=== PATIENT | female | born 1950 | race African-American/Black ===

== ENCOUNTER 2017-08-18 20:01 | Emergency (ER) | payer OTHER ==
[2017-08-18 20:27] VITALS: BP 151/98; PULSE 79; TEMP 98.5; BMI 32.1
[2017-08-18] MEDS ORDERED: TETANUS AND DIPHTHERIA TOXOID 0.5 ML DISP.SYRIN IM ONE (20:45)
[2017-08-18] MEDS ORDERED: BACITRACIN 15 GM TUBE TOPICAL OINTMENT ONE (20:45)
[2017-08-18] MEDS ORDERED: BACITRACIN 15 GM TUBE TOPICAL OINTMENT TP ONE (20:45)
--- NOTE | 2017-08-18 20:53 | PDOC ---
History of Present Illness - General Chief Complaint: Abrasion Stated Complaint: LACERATION Time Seen by Provider: 08/18/17 20:38 History Source: Patient - History of Present Illness Initial Comments: 08/18/17 20:46 67 year old female is a [employer] employee c/o scratches to right hand by child from the [facility]. pmhx. hypertension Past History - Past Medical History Allergies/Adverse Reactions: Allergies Allergy/AdvReac Type Severity Reaction Status Date / Time No Known Allergies Allergy Verified 12/28/14 22:11 Home Medications: Ambulatory Orders Olmesartan/Amlodipin/Hcthiazid [Tribenzor 40-10-25 mg Tablet] 1 each PO DAILY Rosuvastatin Calcium [Crestor] 10 mg PO HS 12/28/14 HTN: Yes Hypercholesterolemia: Yes - Immunization History Immunization Up to Date: Yes (FLU) - Suicide/Smoking/Psychosocial Hx Smoking Status: No Smoking History: Current every day smoker Have you smoked in the past 12 months: Yes Number of Cigarettes Smoked Daily: 8 Information on smoking cessation initiated: No Hx Alcohol Use: No Drug/Substance Use Hx: No Substance Use Type: None Review of Systems - Review of Systems Able to Perform ROS?: Yes Is the patient limited Congolese proficient: No Constitutional: No: Symptoms Reported, See HPI, Chills, Diaphoresis, Fever, Loss of Appetite, Malaise, Night Sweats, Weakness, Weight Stable, Unintentional Wgt. Loss, Unexplained wgt Loss, Other Respiratory: No: Symptoms reported, See HPI, Cough, Orthopnea, Shortness of Breath, SOB with Exertion, SOB at Rest, Stridor, Wheezing, Productive cough, Hemoptysis, Other ABD/GI: No: Symptoms Reported, See HPI, Abdominal Distended, Abd. Pain w/ defecation, Blood Streaked Bowels, Constipated, Diarrhea, Difficulty Swallowing , Nausea, Poor Appetite, Poor Fluid Intake, Rectal Bleeding, Vomiting, Indigestion, Abdominal cramping, Tarry Stools, Other Integumentary: Yes: Other (scratches duncan) *Physical Exam - Vital Signs Last Vital Signs Temp Pulse Resp BP Pulse Ox 98.5 F 79 18 151/98 97 08/18/17 20:24 08/18/17 20:24 08/18/17 20:24 08/18/17 20:24 08/18/17 20:24 - Physical Exam General Appearance: Yes: Appropriately Dressed Extremity: positive: Other (right hand with multiple scratch duncan. clean dry and intact) Progress Note - Progress Note Progress Note: and scratch duncan P: wound cleaned with saline a betadine. bacitracin applied TD IM given/ *DC/Admit/Observation/Transfer Diagnosis at time of Disposition: Scratch of hand Qualifiers: Encounter type: initial encounter Laterality: right Qualified Code(s): S60.511A - Abrasion of right hand, initial encounter; S60.511A - Abrasion of right hand, initial encounter - Discharge Dispostion Disposition: HOME - Patient Instructions Printed Discharge Instructions: DI for Abrasion Additional Instructions: Apply bacitracin to the area. follow up with your doctor for a wound check in 2 days.
== END 2017-08-18 21:06 | disposition home or self-care (01) ==
LOC: JERFT 20:01
PROC: 3E0234Z Introduction of Serum, Toxoid and Vaccine into Muscle, Percutaneous Approach (ICD-10-PCS; principal; 2017-08-18)
DX: S60.511A Abrasion of right hand, initial encounter (principal); W50.0XXA Accidental hit or strike by another person, initial encounter; Y93.F9 Activity, other caregiving; Y92.118 Other place in children's home and orphanage as the place of occurrence of the external cause; Y99.0 Civilian activity done for income or pay; I10 Essential (primary) hypertension; E78.00 Pure hypercholesterolemia, unspecified; F17.210 Nicotine dependence, cigarettes, uncomplicated
CPT/HCPCS: 99281-25

== ENCOUNTER 2017-11-27 08:36 | Day surgery (SDC) | payer OTHER ==
[2017-11-26 15:39] VITALS: BMI 31.7
--- NOTE | 2017-11-27 08:19 | HP ---
Satellite [facility] - Chief Complaint Chief Complaint: right ring trigger finger - Past Medical History Allergies/Adverse Reactions: Allergies Allergy/AdvReac Type Severity Reaction Status Date / Time No Known Allergies Allergy Verified 11/26/17 15:30 - Current Medications Current Medications: Home Medications Medication Instructions Recorded Olmesartan/Amlodipin/Hcthiazid 1 each PO DAILY 12/28/14 [Tribenzor 40-10-25 mg Tablet] Atorvastatin Ca [Lipitor] 10 mg PO HS 08/18/17 Aspirin [ASA -] 81 mg PO DAILY 11/26/17 Hydrocodone/Acetaminophen [[place] 1 each PO Q6H PRN #20 tablet MDD 4 11/27/17 5-325 Tablet] Satellite Physical Exam - Physical Examination General Appearance: Well Nourished, Well Developed, Alert & Oriented x3 ENT: Clear Lung: Normal air movement Heart: Regular rate & rhythm Extremities: Other (right ring finger- + ttp, + locking a1 alize, nvi) Neurological: Intact, Alert, Oriented Satellite Impression/Plan - Impression/Plan Impression: right ring trigger finger Operative Procedure: right ring trigger release Date to be Performed: 11/27/17
[2017-11-27] MEDS ORDERED: ceFAZolin SODIUM 1 GM VIAL ONE (09:34)
[2017-11-27] MEDS ORDERED: MIDAZOLAM HCL 2 MG/2 ML SINGLE DOSE VIAL ONE (09:35)
[2017-11-27] MEDS ORDERED: PROPOFOL 20 ML ONE (09:35)
[2017-11-27] MEDS ORDERED: KETOROLAC TROMETHAMINE 30 MG/1 ML VIAL ONE (09:50)
[2017-11-27] MEDS ORDERED: ceFAZolin SODIUM 1 GM VIAL IVPB ONE (10:00)
[2017-11-27] MEDS ORDERED: BUPIVACAINE HCL/PF 0.5% (5MG/ML) 10 ML VIAL IJ ONE (10:09)
[2017-11-27] MEDS ORDERED: LIDOCAINE HCL 1%, 10 MG/ML (20ML VIAL) INF ONE (10:09)
--- NOTE | 2017-11-27 10:44 | OP ---
Operative Note - Note: Operative Date: 11/27/17 Pre-Operative Diagnosis: right ring finger mass, ring trigger finger Operation: right ring finger mass excision, trigger finger release (seperate incision), tendon sheath excision Post-Operative Diagnosis: Same as Pre-op Surgeon: Frederick Parra Anesthesiologist/RADIATOR REPAIRER: Christy Ramirez Anesthesia: Local, MAC Specimens Removed: 1. mass right ring finger 2. ring finger A1 tendon sheath Estimated Blood Loss (mls): 0 Drains, Volume Out (mls): 0 Blood Volume Replaced (mls): 0 Fluid Volume Replaced (mls): 500 Operative Report Dictated: Yes
[2017-11-27] MEDS ORDERED: ONDANSETRON 4 MG/2 ML VIAL IVPUSH PRN (10:46)
[2017-11-27] MEDS ORDERED: oxyCODONE HCL 5 MG TABLET PO PRN (10:46)
[2017-11-27] MEDS ORDERED: ACETAMINOPHEN 325 MG TABLET (FP) PO PRN (10:46)
[2017-11-27] MEDS ORDERED: LACTATED RINGERS SOLUTION 1,000 ML IV SCH (11:00)
[2017-11-27 11:52] VITALS: TEMP 97.9
--- NOTE | 2017-11-27 13:18 | SPEC ---
DATE OF OPERATION: 11/27/2017 PREOPERATIVE DIAGNOSES: 1. Mass right ring finger. 2. Ring finger trigger finger. POSTOPERATIVE DIAGNOSES: 1. Mass right ring finger. 2. Ring finger trigger finger. PROCEDURES: 1. Right ring finger mass excision. 2. Right ring finger trigger finger release. 3. Ring finger tendon sheath excision. SURGEON: Delia Daly MD CHAMBER MAGISTRATE: None. ANESTHESIA: JACQUIE Fox anesthesia. Local injection of 10 mL 0.5% Marcaine 1% lidocaine mix. DRAINS: None. COMPLICATIONS: None. SPECIMEN: 1. Mass right ring finger. 2. Tendon sheath right ring finger/hand. INDICATIONS: This patient is a 67-year-old female with a preoperative diagnosis of recurrent, severe right ring finger trigger finger as well as a mass in a different location along the ulnar aspect of the middle phalanx of the right ring finger. The mass has grown. It is bothersome. It is unsightly. She wants it excised. She understands the potential risks, complications, alternatives, and benefits of surgery versus nonsurgical treatment. She understands that where the mass is it is right over the digital artery and nerve there is a chance of temporary or permanent paresthesias. She also understands this mass may be a more concerning diagnosis, and she understands that it may recur at this or other locations. She will have 2 scars as there are 2 separate incisions. She understands these, and other potential risks and complications were discussed and the patient brought to the operating room. DESCRIPTION OF PROCEDURE: Peripheral IV was placed. IV sedation given. Then 1 g of IV Ancef was given. MAC anesthesia was induced. Tourniquet was applied to the right upper arm. Right upper extremity was prepped and draped in a sterile fashion, elevated, exsanguinated the limb, and the tourniquet inflated to 250 mmHg. The 2 separate incisions were marked out, one longitudinally in the mid axial plane over the ulnar aspect of the right ring finger middle phalanx and the other over the right ring finger A1 alize sheath. The entire case was done under 3.8 loupe magnification. A marking pen was utilized to rustam out a longitudinal incision in an already existing skin crease at the base of the right ring finger. Then 10 mL of 0.5% Marcaine mixed with 1% Lidocaine was injected in and around the incision. The right upper extremity was elevated, exsanguinated with an Esmarch bandage and the tourniquet inflated to 250 mmHg. A No. 15 scalpel blade was utilized to cut down through the skin. Subcutaneous hemostasis was achieved with the bipolar cautery. Additional dissection was done with Littler scissors until I was able to directly visualize the A1 alize sheath in its entirety. Self-retaining retractors were placed into the wound. A free air elevator was used to free up the tissue on the radial side, the ulnar side distally and proximally under better visualization of A1 alize sheath. Next, using a fresh No. 15 scalpel blade, I excised the central one-third of the A1 alize sheath and passed it off the field as specimen, tendon sheath, right ring finger. I then completed the release, both distally and proximally, and brought the FDS and FDP tendons out through the wound with a Ragnell retractor. There were no abnormal points of compression. I was able to move the right ring finger without the tendons bunching up at all. The area was then copiously irrigated and washed out. I then checked one more time to make sure there were no abnormal points of compression. None were seen and therefore closure was begun. Next, our attention turned to the ulnar aspect of the ring finger middle phalanx area. The patient had a large, longitudinal mass. An incision was made with a No. 15 scalpel blade. Subcutaneous hemostasis was achieved with Bovie cautery. Circumferential dissection was done with a Nayak tenotomy scissors. There were no neurovascular structures on top of the mass or in the immediate field. I believe the mass was volar to the neurovascular structures. A circumferential dissection was carefully done with a No. 15 scalpel blade and Nayak tenotomy scissors. I was then able to pass the specimen off the field. It was about 2 cm long x 1 cm wide x 1 cm deep. It was well circumscribed but what looked like multilobulated. It looked like what may have been rheumatoid arthritis synovitis as it was yellowish-brownish in color and quite friable on the inside. Although there was no stalk, there was a portion that seemed to go down to the ulnar aspect of the PIP joint of the right ring finger. This was all excised and cauterized. The area was copiously irrigated and washed out and again explored. I did not see anything else. Therefore, it was washed out again and closure done with 4-0 nylon sutures. The area was then washed and dried. Two pieces of Xeroform were applied. Sterile 4 x 4s gauze, fluff between the fingers, Webril, and Coban. The tourniquet was taken down after a total tourniquet time of 24 minutes. There were no complications during the case. The patient tolerated the procedure well and was brought to the ambulatory recovery room in stable condition. DELIA DALY M.D. [id number]
[2017-11-27 13:24] VITALS: BP 145/77; PULSE 76
--- NOTE | 2017-12-03 15:33 | PATH ---
Surgical Pathology Report Patient Name: JOSE VALLEJO [facility]. Rec. #: [id number] /Age/Gender: 1950 (Age: 67) / F Account: [id number] Location: [facility] Taken: 11/27/2017 Received: 11/27/2017 Reported: 12/03/2017 Physicians: Frederick Parra M.D. Specimen(s) Received A: TENDON SHEATH RIGHT RING FINGER B: MASS OF RIGHT RING FINGER Clinical History Right ring trigger finger Final Diagnosis A. TENDON SHEATH, RING FINGER, EXCISION: DENSE FIBROCONNECTIVE TISSUE WITH MILD CHRONIC INFLAMMATION. B. FINGER, RIGHT, RING, MASS, EXCISION: TENOSYNOVIAL GIANT CELL TUMOR, LOCALIZED TYPE (NODULAR TENOSYNOVITIS). Electronically Signed Verenice Tejada M.D. Gross Description A. Received in formalin labeled "tendon sheath right ring finger," is a 0.6 x 0.3 x 0.2 cm pozo, irregular portion of fibrous tissue. The specimen is submitted in toto in one cassette. B. Received in formalin labeled "mass right ring finger," is a 1.3 x 1.0 x 0.6 cm pozo, firm mass. Sectioning reveals homogeneous pozo, smooth parenchyma. The specimen is serially sectioned and entirely submitted in one cassette. 11/28/201711/28/2017
== END 2017-11-27 13:24 | disposition home or self-care (01) ==
LOC: JASU-SURG 08:36
PROVIDERS: ATTEND Orthopaedic Surgery
PROC: 0JBJ0ZZ Excision of Right Hand Subcutaneous Tissue and Fascia, Open Approach (ICD-10-PCS; 2017-11-27)
PROC: 0LB70ZZ Excision of Right Hand Tendon, Open Approach (ICD-10-PCS; 2017-11-27)
PROC: 0LN70ZZ Release Right Hand Tendon, Open Approach (ICD-10-PCS; principal; 2017-11-27 10:00)
DX: M65.341 Trigger finger, right ring finger (principal); D48.1 Neoplasm of uncertain behavior of connective and other soft tissue
CPT/HCPCS: 88304-TC; 88307-TC; 94760

== ENCOUNTER 2022-11-28 04:14 | Day surgery (SDC) | payer OTHER ==
[2022-11-26 12:42] VITALS: BMI 28.3
[2022-11-28 10:47] VITALS: TEMP 97.5
[2022-11-28 11:20] VITALS: PULSE 72
[2022-11-28 11:25] VITALS: BP 142/69; RESP 19
== END 2022-11-28 12:10 | disposition home or self-care (01) ==
LOC: JASU-ENDO 04:14
PROVIDERS: ATTEND Internal Medicine Gastroenterology
PROC: 0D9H8ZX Drainage of Cecum, Via Natural or Artificial Opening Endoscopic, Diagnostic (ICD-10-PCS; 2022-11-28)
PROC: 0D9K8ZX Drainage of Ascending Colon, Via Natural or Artificial Opening Endoscopic, Diagnostic (ICD-10-PCS; 2022-11-28)
PROC: 0DBK8ZX Excision of Ascending Colon, Via Natural or Artificial Opening Endoscopic, Diagnostic (ICD-10-PCS; 2022-11-28)
PROC: 0DBN8ZX Excision of Sigmoid Colon, Via Natural or Artificial Opening Endoscopic, Diagnostic (ICD-10-PCS; 2022-11-28)
PROC: 0D9Q8ZX Drainage of Anus, Via Natural or Artificial Opening Endoscopic, Diagnostic (ICD-10-PCS; principal; 2022-11-28 09:15)
DX: Z12.11 Encounter for screening for malignant neoplasm of colon (principal); D12.0 Benign neoplasm of cecum; D12.2 Benign neoplasm of ascending colon; D12.5 Benign neoplasm of sigmoid colon; D12.9 Benign neoplasm of anus and anal canal; K64.8 Other hemorrhoids; Z86.010 Personal history of colon polyps; K63.89 Other specified diseases of intestine
CPT/HCPCS: 88305-TC